=== PATIENT | male | born 1985 | race Caucasian/White ===

== ENCOUNTER 2018-03-29 17:25 | Inpatient (IN) | payer SELFPAY ==
[~2018-03-29] VITALS: Ht 177.8 cm; Wt 80.7 kg
[~2018-03-29 17:25] MED LIST: CYCL10TA29 PO; IBUP800T37 PO; TRAM-420 PO
--- NOTE | 2018-03-29 17:42 | ER Report ---
History and Physical Time Seen By MD: 17:42 Hx. of Stated Complaint: GEN. ABDO PAIN, VOMITING HPI/ROS CHIEF COMPLAINT: Abdominal pain HISTORY OF PRESENT ILLNESS: This is a 32-year-old male who presents to the emergency department for abdominal pain. Patient was seen and evaluated briefly at urgent care, sent to the ER to see has severe epigastric pain. Patient states that he developed epigastric discomfort today, getting worse Anival course today, has had nausea and vomiting, last bowel movement last night which was normal. No blood in the emesis or in the stool. Patient does drink 4 skis a day. Chills today, no fevers. No rashes. No chest pain or shortness of breath. The pain does not radiate to the flank. REVIEW OF SYSTEMS: Constitutional: As above. Eyes: No discharge. ENT: No sore throat. Cardiovascular: No chest pain, no palpitations. Respiratory: No cough, no shortness of breath. Gastrointestinal: As above. Genitourinary: No hematuria. Musculoskeletal: No back pain. Skin: No rashes. Neurological: No headache. Allergies: Coded Allergies: No Known Drug Allergies (Unverified , 04/05/16) Home Meds Discontinued Scripts Tramadol Hcl (TRAMADOL HCL) 50 Mg Tablet, 50-100 MG PO Q4-6H for PAIN, #40 TAB Prov:MANDIE POWER DO 04/05/16 Ibuprofen (IBUPROFEN) 800 Mg Tablet, 1 TAB PO Q8H for PAIN, #60 TAB Prov:JANI POWERE DO 04/05/16 Cyclobenzaprine Hcl (CYCLOBENZAPRINE HCL) 10 Mg Tablet, 10 MG PO TID for Muscle Relaxant, #30 TAB Prov:MANDIE POWER DO 04/05/16 Hx Smoking: Yes Smoking Status: Current: Every Day Smoker Exposure to Second Hand Smoke?: Yes Hx Substance Use Disorder: No Hx Alcohol Use: Yes (3 TIMES WEEKLY) Constitutional Vital Sign - Last 24 Hours 03/29/18 03/29/18 03/29/18 17:39 19:00 20:00 Temp 98.4 Pulse 68 74 65 Resp 18 15 B/P (MAP) 121/97 148/97 (114) 126/89 (101) Pulse Ox 98 96 O2 Delivery Room Air Physical Exam General Appearance: The patient is alert, has no immediate need for airway protection and no signs of toxicity, very anxious and appears to be in pain. Eyes: Pupils equal and round no pallor or injection. ENT, Mouth: Mucous membranes are moist. Respiratory: There are no retractions, lungs are clear to auscultation. Cardiovascular: Regular rate and rhythm. Gastrointestinal: Abdomen is soft, diffuse abdominal pain with intense epigastric discomfort. no masses, bowel sounds normal. Neurological: Alert and oriented 4. Moving all extremities. Following all commands. No focal neuro deficits. Skin: Warm and dry, no rashes. Musculoskeletal: Neck is supple non tender. Extremities are nontender, nonswollen and have full range of motion. DIFFERENTIAL DIAGNOSIS: After history and physical exam differential diagnosis was considered for abdominal pain including but not limited to appendicitis, alcoholic gastritis, pancreatitis, cholecystitis, gastritis and urinary tract infection. Medical Decision Making Data Points Result Diagram: 03/29/18 1820 03/29/18 1820 Laboratory Hematology Test 03/29/18 18:20 Red Blood Count 4.86 M/uL (4.00-5.60) Mean Corpuscular Volume 100.9 fL (80.0-96.0) Mean Corpuscular Hemoglobin 35.0 pg (26.0-33.0) Mean Corpuscular Hemoglobin Concent 34.7 g/dL (32.0-36.0) Red Cell Distribution Width 12.6 % (11.5-14.5) Mean Platelet Volume 8.4 fL (7.2-11.1) Neutrophils (%) (Auto) 91.0 % (39.4-72.5) Lymphocytes (%) (Auto) 3.1 % (17.6-49.6) Monocytes (%) (Auto) 5.4 % (4.1-12.4) Eosinophils (%) (Auto) 0.0 % (0.4-6.7) Basophils (%) (Auto) 0.5 % (0.3-1.4) Nucleated RBC Relative Count (auto) 0.0 /100WBC Neutrophils # (Auto) 10.8 K/uL (2.0-7.4) Lymphocytes # (Auto) 0.4 K/uL (1.3-3.6) Monocytes # (Auto) 0.6 K/uL (0.3-1.0) Eosinophils # (Auto) 0.0 K/uL (0.0-0.5) Basophils # (Auto) 0.1 K/uL (0.0-0.1) Nucleated RBC Absolute Count (auto) 0.00 K/uL Urine Color Miranda Urine Clarity Slightly-cloudy Urine pH 5.0 pH (4.8-9.5) Urine Specific [place] 1.037 Urine Protein 500 mg/dL (NEGATIVE) Urine Glucose (UA) 50 mg/dL (NEGATIVE) Urine Ketones 80 mg/dL (NEGATIVE) Urine Blood Small (NEGATIVE) Urine Nitrite Negative (NEGATIVE) Urine Bilirubin Moderate (NEGATIVE) Urine Urobilinogen 4.0 mg/dL (0.2-1.9) Urine Leukocyte Esterase Negative (NEGATIVE) Urine RBC 2 /HPF (0-2/HPF) Urine WBC <1 /HPF (0-5/HPF) Urine Squamous Epithelial Cells Few /LPF (</=FEW) Urine Bacteria Negative /HPF (NONE-FEW) Urine Mucus Few /HPF (NONE-FEW) Sodium Level 137 mmol/L (137-145) Potassium Level 3.5 mmol/L (3.5-5.0) Chloride Level 96 mmol/L (98-107) Carbon Dioxide Level 18 mmol/L (22-30) Blood Urea Nitrogen 8 mg/dl (9-21) Creatinine 0.90 mg/dl (0.66-1.25) Glomerular Filtration Rate Calc > 60.0 Random Glucose 186 mg/dl (75-110) Calcium Level 10.2 mg/dl (8.4-10.2) Total Bilirubin 1.8 mg/dl (0.2-1.3) Aspartate Amino Transf (AST/SGOT) 261 U/L (0-35) Alanine Aminotransferase (ALT/SGPT) 301 U/L (0-56) Alkaline Phosphatase 74 U/L (0-126) Troponin I < 0.012 ng/ml Total Protein 8.1 g/dl (6.3-8.2) Albumin 4.8 g/dl (3.5-5.0) Amylase Level 561 U/L (0-110) Lipase 9583 U/L (23-300) Chemistry Test 03/29/18 18:20 White Blood Count 11.9 k/uL (4.5-11.0) Red Blood Count 4.86 M/uL (4.00-5.60) Hemoglobin 17.0 g/dL (14.0-18.0) Hematocrit 49.0 % (42.0-52.0) Mean Corpuscular Volume 100.9 fL (80.0-96.0) Mean Corpuscular Hemoglobin 35.0 pg (26.0-33.0) Mean Corpuscular Hemoglobin Concent 34.7 g/dL (32.0-36.0) Red Cell Distribution Width 12.6 % (11.5-14.5) Platelet Count 197 K/uL (150-450) Mean Platelet Volume 8.4 fL (7.2-11.1) Neutrophils (%) (Auto) 91.0 % (39.4-72.5) Lymphocytes (%) (Auto) 3.1 % (17.6-49.6) Monocytes (%) (Auto) 5.4 % (4.1-12.4) Eosinophils (%) (Auto) 0.0 % (0.4-6.7) Basophils (%) (Auto) 0.5 % (0.3-1.4) Nucleated RBC Relative Count (auto) 0.0 /100WBC Neutrophils # (Auto) 10.8 K/uL (2.0-7.4) Lymphocytes # (Auto) 0.4 K/uL (1.3-3.6) Monocytes # (Auto) 0.6 K/uL (0.3-1.0) Eosinophils # (Auto) 0.0 K/uL (0.0-0.5) Basophils # (Auto) 0.1 K/uL (0.0-0.1) Nucleated RBC Absolute Count (auto) 0.00 K/uL Urine Color Miranda Urine Clarity Slightly-cloudy Urine pH 5.0 pH (4.8-9.5) Urine Specific [place] 1.037 Urine Protein 500 mg/dL (NEGATIVE) Urine Glucose (UA) 50 mg/dL (NEGATIVE) Urine Ketones 80 mg/dL (NEGATIVE) Urine Blood Small (NEGATIVE) Urine Nitrite Negative (NEGATIVE) Urine Bilirubin Moderate (NEGATIVE) Urine Urobilinogen 4.0 mg/dL (0.2-1.9) Urine Leukocyte Esterase Negative (NEGATIVE) Urine RBC 2 /HPF (0-2/HPF) Urine WBC <1 /HPF (0-5/HPF) Urine Squamous Epithelial Cells Few /LPF (</=FEW) Urine Bacteria Negative /HPF (NONE-FEW) Urine Mucus Few /HPF (NONE-FEW) Glomerular Filtration Rate Calc > 60.0 Calcium Level 10.2 mg/dl (8.4-10.2) Total Bilirubin 1.8 mg/dl (0.2-1.3) Aspartate Amino Transf (AST/SGOT) 261 U/L (0-35) Alanine Aminotransferase (ALT/SGPT) 301 U/L (0-56) Alkaline Phosphatase 74 U/L (0-126) Troponin I < 0.012 ng/ml Total Protein 8.1 g/dl (6.3-8.2) Albumin 4.8 g/dl (3.5-5.0) Amylase Level 561 U/L (0-110) Lipase 9583 U/L (23-300) Urinalysis Test 03/29/18 18:20 Urine Color Miranda Urine Clarity Slightly-cloudy Urine pH 5.0 pH (4.8-9.5) Urine Specific [place] 1.037 Urine Protein 500 mg/dL (NEGATIVE) Urine Glucose (UA) 50 mg/dL (NEGATIVE) Urine Ketones 80 mg/dL (NEGATIVE) Urine Blood Small (NEGATIVE) Urine Nitrite Negative (NEGATIVE) Urine Bilirubin Moderate (NEGATIVE) Urine Urobilinogen 4.0 mg/dL (0.2-1.9) Urine Leukocyte Esterase Negative (NEGATIVE) Urine RBC 2 /HPF (0-2/HPF) Urine WBC <1 /HPF (0-5/HPF) Urine Squamous Epithelial Cells Few /LPF (</=FEW) Urine Bacteria Negative /HPF (NONE-FEW) Urine Mucus Few /HPF (NONE-FEW) EKG/Imaging EKG Interpretation 12 lead EKG: Time of EKG 1754. Rhythm: Normal sinus rhythm, ventricular rate 65 bpm. [place]: normal QRS: normal ST segments: Nonspecific T wave changes in V2, V3, V4, V5 and the 6, no ST depression or elevation, no reciprocal changes. 12 lead EKG: Time of EKG 1830. Rhythm: Repeat EKG showing normal sinus rhythm, ventricular rate 63 bpm. [place]: normal QRS: normal ST segments: Nonspecific T wave changes similar to the previous EKG in V2, V3, V4, V5 and V6. Still no ST depression or elevation identified. No reciprocal changes. Imaging CT abdomen and pelvis with IV contrast Indication: Epigastric pain. Comparison: None available. . Technique: Axial CT images were obtained through the abdomen and pelvis during injection of nonionic iodinated intravenous contrast. Reformatted coronal and sagittal images were also obtained. One of the following dose optimization techniques was utilized in the performance of this exam: Automated exposure control; adjustment of the mA and/or kV according to the patient's size; or use of an iterative reconstruction technique. Specific details can be referenced in the facility's radiology CT exam operational policy. Contrast: 75 ml of Isovue-370 IV contrast. Findings: Lower lung horton: Limited views lower lung field are unremarkable. Liver: Mildly diffusely hypodense without focal abnormality. Biliary: Gallbladder appears unremarkable as well as the intra and extra hepatic biliary system. Pancreas: Significant peripancreatic inflammatory changes without fluid collection. Small amount of free fluid. Pancreas shows homogeneous enhancement. No focal normality or ductal dilatation. Inflammatory changes extend to paracolic gutter regions and the anterior mesocolon. Spleen: Normal appearance. Adrenal glands: Unremarkable. Kidneys / retroperitoneum: No evidence of nephrolithiasis or hydronephrosis. No focal normality. Bowel / peritoneum / mesenteries: There is some mild inflammation around the colon from the hepatic flexure to the splenic flexure but this appears to be secondary to the peripancreatic inflammation extending to this region. The remaining colon shows no focal abnormality. The appendix is normal. The small bowel shows no focal normality or obstruction the stomach is unremarkable. No other areas of inflammation. There is small amount free fluid in pelvis. No fluid collections or free air. Small umbilical hernia containing fat. Lymph node assessment: No pathologic adenopathy identified. Pelvic structures: Appear unremarkable. Vessels: No significant atherosclerotic calcifications seen throughout a nonaneurysmal abdominal aorta and branches. Musculoskeletal / Body wall: No acute or aggressive osseous abnormality. IMPRESSION: 1. Findings consistent with acute pancreatitis. Pancreas shows no focal abnormality. There is significant peripancreatic inflammation extending to the anterior mesocolon , duodenum and colon around the transverse colon. The inflammation around the colon is likely secondary to the pancreatitis and not colitis. A small amount of free fluid is seen in the peripancreatic region and the pelvis. No fluid collections. 2. Mildly diffusely hypodense liver consistent with fatty infiltration or chronic disease. No focal abnormality. I called report to RONNIE ALBA at 03/29/2018 7:48 PM. Report Dictated By: Chandra Marshall at 03/29/2018 7:40 PM Report E-Signed By: Chandra Marshall at 03/29/2018 7:50 PM WSN:[id number] ED Course/Re-evaluation Clinical Indication for ER IV: Hydration, IV Access ED Course The patient was minutes of a room. History and physical were obtained. Differential diagnoses were considered. An IV was started. A CBC, CMP, amylase and lipase were obtained. CBC showing white count of 11.9. Blood sugar 186.Bilirubin 1.8, AST 261, ALT 301, amylase 561, lipase 9583. EKGs 2 showing normal sinus rhythm, no ST depression or elevation identified. Patient was given a 1 L normal saline bolus. 6.25 mg IV Phenergan, 50 micrograms IV fentanyl, 1 mg IV Dilaudid 2. A CT of the abdomen and pelvis showing acute pancreatitis. I did review the laboratory studies and the CT results with the patient. I did tell him that the pancreatitis could be secondary to his alcohol consumption. I did recommend an admission to the hospital and talking to a therapist or someone about his alcohol consumption. Patient is in agreement with this. Did speak with Dr. Corbin is notable, the patient will be admitted to the medical floor for acut e pancreatitis. Patient had no other questions or concerns at this time and was admitted. 03/29/2018 8:35:15 pm I did speak with Dr. Corbin who has accepted the patient and the hospitalist services, patient will be admitted to the medical unit for pancreatitis. Decision to Disposition Date: Mar 29, 2018 Decision to Disposition Time: 20:34 Depart Departure Latest Vital Signs Vital Signs Date Time Temp Pulse Resp B/P (MAP) Pulse Ox O2 Delivery O2 Flow Rate FiO2 03/29/18 20:00 65 15 126/89 (101) 96 Room Air 03/29/18 17:39 98.4 Impression: Primary Impression: Pancreatitis, acute Condition: Condition Unchanged Disposition: Admitted from ER New Scripts No Active Prescriptions or Reported Meds Problem Qualifiers Primary Impression: Pancreatitis, acute Pancreatitis type: alcohol induced Acute pancreatitis complication: no infection or necrosis Qualified Codes: K85.20 - Alcohol induced acute pancreatitis without necrosis or infection RONNIE ALBA EXPLOSIVE OPERATOR [employer] Mar 29, 2018 17:42
[2018-03-29] MEDS ORDERED: NS(*) 0.9% 1000 ML BAG 1,000 ML IV ONE (17:48)
[2018-03-29] MEDS ORDERED: PROMETHAZINE 25 MG/ML 1 ML AMP IVP ONE (17:50)
[2018-03-29] MEDS ORDERED: fentaNYL CITR 100 MCG/2 ML AMP IVP ONE (17:50)
--- NOTE | 2018-03-29 18:03 | EKG ---
FACILITY: [facility] - [place] PATIENT NAME: HERMINIO MENON : [id number] MR: [id number] V: [id number] EXAM DATE: ORDERING PHYSICIAN: RONNIE ALBA TECHNOLOGIST: NICHOLAS Tong Reason : PAIN Blood Pressure : / mmHG Vent. Rate : 065 BPM Atrial Rate : 065 BPM P-R Int : 120 ms QRS Dur : 092 ms QT Int : 528 ms P-R-T Axes : 000 075 090 degrees QTc Int : 549 ms Normal sinus rhythm with sinus arrhythmia T wave abnormality, consider anterior ischemia Prolonged QT Abnormal ECG No previous ECGs available Confirmed by CHELSEA MACHADO ([id number]) on 03/29/2018 8:17:10 PM Referred By: Confirmed By:CHELSEA MACHADO
[2018-03-29] MEDS ORDERED: IOPAMIDOL 76% 75 ML INFUS BTL 75 ML ONE (18:10)
--- NOTE | 2018-03-29 18:34 | EKG ---
FACILITY: [facility] - [place] PATIENT NAME: HERMINIO MENON : [id number] MR: [id number] V: [id number] EXAM DATE: ORDERING PHYSICIAN: RONNIE ALBA TECHNOLOGIST: NICHOLAS Tong Reason : REPEAT Blood Pressure : / mmHG Vent. Rate : 063 BPM Atrial Rate : 063 BPM P-R Int : 110 ms QRS Dur : 088 ms QT Int : 474 ms P-R-T Axes : 096 072 113 degrees QTc Int : 485 ms Sinus rhythm with short MI T wave abnormality, consider anterolateral ischemia Prolonged QT Abnormal ECG No previous ECGs available Confirmed by CHELSEA MACHADO ([id number]) on 03/29/2018 8:17:55 PM Referred By: Confirmed By:CHELSEA MACHADO
[2018-03-29] MEDS ORDERED: HYDROMORPHONE HCL 1 MG/ML SYRINGE IVP ONE ×2 (18:35→20:35)
[2018-03-29 18:41] LABS: PLATELET COUNT, AUTOMATED 197 K/uL (150-450)
--- NOTE | 2018-03-29 19:54 | RADIOLOGY IMAGING REPORT ---
[place] [facility] [place] Paul [place] : 1985 MR: [id number] V: [id number] EXAM DATE: ORDERING PHYSICIAN: RONNIE ALBA TECHNOLOGIST: Location: [facility] - [place] Patient: Paul Baker : 1985 Visit/Account:[id number] Date of Sevice: 03/29/2018 CT abdomen and pelvis with IV contrast Indication: Epigastric pain. Comparison: None available. . Technique: Axial CT images were obtained through the abdomen and pelvis during injection of nonioni c iodinated intravenous contrast. Reformatted coronal and sagittal images were also obtained. One of the following dose optimization techniques was utilized in the performance of this exam: Autom ated exposure control; adjustment of the mA and/or kV according to the patient's size; or use of an i terative reconstruction technique. Specific details can be referenced in the facility's radiology C T exam operational policy. Contrast: 75 ml of Isovue-370 IV contrast. Findings: Lower lung horton: Limited views lower lung field are unremarkable. Liver: Mildly diffusely hypodense without focal abnormality. Biliary: Gallbladder appears unremarkable as well as the intra and extra hepatic biliary system. Pancreas: Significant peripancreatic inflammatory changes without fluid collection. Small amount of f ree fluid. Pancreas shows homogeneous enhancement. No focal normality or ductal dilatation. Inflammat ory changes extend to paracolic gutter regions and the anterior mesocolon. Spleen: Normal appearance. Adrenal glands: Unremarkable. Kidneys / retroperitoneum: No evidence of nephrolithiasis or hydronephrosis. No focal normality. Bowel / peritoneum / mesenteries: There is some mild inflammation around the colon from the hepatic f lexure to the splenic flexure but this appears to be secondary to the peripancreatic inflammation ext ending to this region. The remaining colon shows no focal abnormality. The appendix is normal. The sm all bowel shows no focal normality or obstruction the stomach is unremarkable. No other areas of inflammation. There is small amount free fluid in pelvis. No fluid collections or f ree air. Small umbilical hernia containing fat. Lymph node assessment: No pathologic adenopathy identified. Pelvic structures: Appear unremarkable. Vessels: No significant atherosclerotic calcifications seen throughout a nonaneurysmal abdominal aort a and branches. Musculoskeletal / Body wall: No acute or aggressive osseous abnormality. IMPRESSION: 1. Findings consistent with acute pancreatitis. Pancreas shows no focal abnormality. There is signifi cant peripancreatic inflammation extending to the anterior mesocolon , duodenum and colon around the transverse colon. The inflammation around the colon is likely secondary to the pancreatitis and not c olitis. A small amount of free fluid is seen in the peripancreatic region and the pelvis. No fluid co llections. 2. Mildly diffusely hypodense liver consistent with fatty infiltration or chronic disease. No focal a bnormality. I called report to RONNIE ALBA at 03/29/2018 7:48 PM. Report Dictated By: Chandra Marshall at 03/29/2018 7:40 PM Report E-Signed By: Chandra Marshall at 03/29/2018 7:50 PM WSN:[id number]
[2018-03-29 21:00] VITALS: BP 164/84
[2018-03-29] MEDS ORDERED: MORPHINE 1 MG/ML 30 ML PCA IV PRN (22:10)
[2018-03-29] MEDS ORDERED: PROMETHAZINE 25 MG/ML 1 ML AMP IVP PRN (22:10)
[2018-03-29] MEDS ORDERED: NALOXONE HCL 0.4 MG/ML VIAL IVP PRN (22:10)
[2018-03-29] MEDS ORDERED: INFLUENZA VIRUS VAC 0.5ML SYR IM ONLY ONE (22:10)
--- NOTE | 2018-03-29 22:22 | History & Physical ---
History of Present Illness Chief Complaint Abdominal pain and vomiting History of Present Illness This patient presented to the emergency room complaining of abdominal pain and vomiting. He reports his symptoms started abruptly this morning. He also reports that he consumes several glasses of whiskey daily. History Problems: (1) No significant past medical history Home Meds Discontinued Scripts Tramadol Hcl (TRAMADOL HCL) 50 Mg Tablet, 50-100 MG PO Q4-6H for PAIN, #40 TAB Prov:JANNETTATEMANDIE DO 04/05/16 Ibuprofen (IBUPROFEN) 800 Mg Tablet, 1 TAB PO Q8H for PAIN, #60 TAB Prov:JANNET,MANDIE DO 04/05/16 Cyclobenzaprine Hcl (CYCLOBENZAPRINE HCL) 10 Mg Tablet, 10 MG PO TID for Muscle Relaxant, #30 TAB Prov:JANNET,MANDIE DO 04/05/16 Allergies: Coded Allergies: No Known Drug Allergies (Unverified , 04/05/16) Patient History: FH: alcoholism MOTHER FH: bipolar disorder BROTHER OR SISTER Hx Smoking: Yes ("vaping") Smoking Status: Current: Every Day Smoker Exposure to Second Hand Smoke?: Yes Caffeine Intake: Tea, Soda Caffeine/Cups Per Day: occ Hx Alcohol Use: Yes Alcohol Used: Liquor Hx Substance Use Disorder: No Social Drug Use: Former History of IV Drug Use: No Review of Systems All Systems Reviewed/Normal: Yes, Except as Noted Gastrointestinal: Nausea, Vomiting, Abdominal Pain Exam Vital Signs Vital Signs Date Time Temp Pulse Resp B/P (MAP) Pulse Ox O2 Delivery O2 Flow Rate FiO2 03/29/18 21:22 92 Room Air 03/29/18 21:00 98.3 70 20 164/84 (110) Neuro: No Gross deficits Eyes: PERRLA Cardiovascular: Regular Rate and Rhythm Respiratory: Clear to Auscultation GI: Other (Tenderness in epigastic region.) Extremities: No Edema Integumentary: No Jaundice Medical Decision Making Data Points Result Diagram: 03/29/18181903/29/181819 Item Value Date Time Lipase 9583 U/L H 03/29/181819 EKG / Imaging Imaging CT abdomen and pelvis reviewed. Assessment and Plan Problems: (1) Pancreatitis, acute Status: Acute Assessment & Plan: He did present with abdominal pain and vomiting. His lipase was elevated and his CT scan is consistent with uncomplicated pancreatitis. The etiology is likely alcohol consumption. 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 A repeat lipase is ordered for the morning. Venous Thromboembolism Antithrombotics Is Pt On Any Antithrombotics?: No Exam Sepsis Risk: No Definite Risk Problem Qualifiers (1) Pancreatitis, acute: Pancreatitis type: alcohol induced Acute pancreatitis complication: no infection or necrosis Qualified Codes: K85.20 - Alcohol induced acute pancreatitis without necrosis or infection CHELSEA MACHADO DO Mar 29, 2018 22:22
[2018-03-29] MEDS: NS(*) 0.9% 1000 ML BAG 1,000 ML IV PRN (22:46)
[2018-03-29 23:23] VITALS: BP 157/90
[2018-03-30 05:21] VITALS: BP 158/100
[2018-03-30] MEDS: NS(*) 0.9% 1000 ML BAG 1,000 ML IV PRN (06:00)
[2018-03-30 06:09] LABS: PLATELET COUNT, AUTOMATED 130 K/uL (150-450)
[2018-03-30 07:24] VITALS: BP 164/105
[2018-03-30] MEDS ORDERED: LR(*) 1000 ML BAG 1,000 ML IV PRN (07:45)
[2018-03-30] MEDS ORDERED: THIAMINE HCL 100 MG TAB PO SCH (09:00)
[2018-03-30] MEDS ORDERED: NICOTINE 14 MG/24 HR PATCH TD SCH (09:00)
[2018-03-30] MEDS ORDERED: FOLIC ACID 1 MG TAB PO SCH (09:00)
[2018-03-30 09:27] VITALS: Ht 177.8 cm; Wt 80.7 kg
--- NOTE | 2018-03-30 10:14 | Hospitalist Progress Note ---
Subjective Progress Notes Subjective 32M admitted for acute pancreatitis. N/V improved, pain well controlled. Discussed trial chips and sips then advance to clear liquid if tolerated. Patient Complains of: Gastrointestinal: Nausea (mild, improved); No Vomiting Physical Exam Vital Signs Date Time Temp Pulse Resp B/P (MAP) Pulse Ox O2 Delivery O2 Flow Rate FiO2 03/30/18 09:23 91 03/30/18 07:24 98.9 89 18 164/105 (124) Nasal Cannula 0.5 Intake and Output 03/30/18 07:00 Intake Total 2000 ml Output Total 385 ml Balance 1615 ml Intake Oral 0 ml IV Total 2000 ml Output Urine Total 360 ml Emesis 25 ml # Voids 2 # Emeses 1 General Appearance: Alert, Awake, No Acute Distress Neuro: No Gross deficits Eyes: PERRLA ENT: Normal Neck: No Masses Cardiovascular: Normal Rhythm & Peripheral Pulses Respiratory: No Respiratory Distress GI: Other (mild epegastric tenderness.) Musculoskeletal: No Weakness/Pain Extremities: Soft and Non Tender Integumentary: Skin Intact without Lesion / Mass Psych: Alert & Oriented X3 Result Diagram: 03/30/18 0545 03/30/18 0545 Assessment and Plan Problems: (1) Pancreatitis, acute Status: Acute Assessment & Plan: He did present with abdominal pain and vomiting. His lipase was elevated and his CT scan is consistent with uncomplicated pancreatitis. The etiology is likely alcohol consumption. He has been placed NPO and morphine DRAGLINE OILER has been started for pain control, IV fluid resuscitation. Trial chips and sips, if tolerated will proceed to clear liquid diet and d/c DRAGLINE OILER pump this evening. (2) Tobacco abuse Assessment & Plan: [employer] cessation, nicotine replacement ordered. (3) Alcohol abuse Assessment & Plan: Daily use, child welfare counselor cessation. Offered referral to [facility] to get resources. Exam Sepsis Risk: No Definite Risk Problem Qualifiers (1) Pancreatitis, acute: Pancreatitis type: alcohol induced Acute pancreatitis complication: no infection or necrosis Qualified Codes: K85.20 - Alcohol induced acute pancreatitis without necrosis or infection MARCOS CHOI DO Mar 30, 2018 10:14
[2018-03-30 11:03] VITALS: BP 157/107
--- NOTE | 2018-03-30 15:44 | Medical Nutrition Therapy ---
Nutrition Anthropometrics Height (Inches): 70.00 Height (Calculated Centimeters: 177.134644 Weight (Pounds): 178 Weight (Calculated Kilograms): 80.739 BMI: 25.5 Ervin Nutrition Score: Adequate Ervin Nutrition Risk Score: 20 Dietary Referral Nutrition Risk Factors: Nutrition Risk Comment: Physical Findings Physical Appearance: Overweight BMI 25-29 Skin Appearance Skin Appearance: Edema Edema Location Modifier: Edema Location: Type of Edema: Degree of Edema: Gastrointestinal Symptoms GI Symtoms: Nausea Tube Present: Bowel Sounds: Recent Bowel Pattern: Stool Characteristics: Nutritional Diagnosis Nutritional Risk Acuity 2: Pancreatitis Nutritional Risk Acuity 3: Alcohol abuse Nutritional Risk Acuity 4: Modified Diet Past Medical History: No significant medical hx Nutritional Acuity: 2-Moderate Nutrition Diagnosis: Inadequate Food Intake Nutrition Etiology: Alcohol Addiction Nutrition Problem/Etiology/Sym: Inadequate food intake, as related to alcohol addiction, as evidenced by reported intake of 4 glasses of whiskey each night, and diagnosis of alcohol and substance abuse. Energy Requirement: 2300 (Blanco, AF-1.3) Protein Requirement: 80 (1g/kg) Fluid Requirement: 2300 (1ml/kcal) Diet Type: NPO (Nothing by Mouth) Nutrition Intervention: Incr diet as tolerated Nutrition Monitoring & Eval RD Patient Assessment Time: [address] Assessment Type: RD Assessment Patient Nutrition Acuity: 2-Moderate Follow Up Date: Apr 02, 2018 Nutritional Comment: 03/30. Admitted for pancreatits. Pt complained of ab pain, nausea, vomiting. Reported pt drinks 4 glasses of whiskey a night, which is thought to be the etiology of the pancreatitis. Pt is currently NPO. Notable labs include: elevated WBC 11.5, random BG 134, AST 121, ALT 202, and lipase 6166. Pt is 70 in, 178lbs, and has an overweight BMI of 25. Increase diet as tolerated. Recommend pt consumes 2300 kcal and 80g protein each day. FREDY HAYS Mar 30, 2018 12:49
[2018-03-30 16:09] VITALS: BP 148/109
[2018-03-30] MEDS ORDERED: APAP/HYDROCODONE 325/5 TAB PO PRN (17:40)
[2018-03-30] MEDS ORDERED: HYDROmorphone HCL 2 MG/ML SDV IVP PRN (17:40)
[2018-03-30 19:24] VITALS: BP 148/102
[2018-03-30] MEDS: DIAZEPAM 10 MG TAB PO PRN ×2 (19:27→20:49)
[2018-03-30] MEDS ORDERED: LORazepam 2 MG/ML VIAL IVP PRN (21:05)
[2018-03-30] MEDS: LORazepam 2 MG/ML VIAL IVP PRN ×3 (21:53→23:53)
[2018-03-30 22:45] VITALS: BP 125/91
[2018-03-31] VITALS (15 sets, daily range): BP systolic 111–164; BP diastolic 65–101
--- NOTE | 2018-03-31 00:17 | EKG ---
[place] [facility] [place] NAME: HERMINIO MENON : [id number] MR: [id number] V: [id number] EXAM DATE: ORDERING PHYSICIAN: MARCOS GIFFORD TECHNOLOGIST: BONNIE Test Reason : TACHYCARDIA Blood Pressure : / mmHG Vent. Rate : 138 BPM Atrial Rate : 138 BPM P-R Int : 000 ms QRS Dur : 082 ms QT Int : 360 ms P-R-T Axes : 000 074 027 degrees QTc Int : [address] and T wave abnormality, consider inferolateral ischemia Abnormal ECG Confirmed by Marcos Freeman ([id number]) on 03/31/2018 6:31:59 AM Referred By: Confirmed By:Marcos Gifford
[2018-03-31] MEDS: LORazepam 2 MG/ML VIAL IVP PRN ×14 (00:56→22:26)
[2018-03-31] MEDS: DIAZEPAM 10 MG TAB PO PRN ×2 (04:19→06:23)
[2018-03-31 06:20] LABS: PLATELET COUNT, AUTOMATED 145 K/uL (150-450)
[2018-03-31] MEDS ORDERED: HYDROmorphone PCA 6 MG/30 ML IV PRN (09:15)
--- NOTE | 2018-03-31 09:32 | RADIOLOGY IMAGING REPORT ---
FACILITY: [facility] PATIENT NAME: Paul Baker : 1985 MR: [id number] V: [id number] EXAM DATE: ORDERING PHYSICIAN: SERG JOHNSON TECHNOLOGIST: Location: [facility] Patient: Paul Baker : 1985 Visit/Account:[id number] Date of Sevice: 03/31/2018 CHEST SINGLE AP HISTORY: Tachypnea. Fever. COMPARISON: None FINDINGS: Cardiomediastinal contours: The heart size is normal. Lungs and pleura: There is no finding of an infiltrate, lymphadenopathy or pleural effusion. Lung vol umes are low but this may be related to the portable nature of the examination. Bones/soft tissues: There are no findings of a fracture. IMPRESSION: 1. Low lung volumes. 2. No active disease in the chest. Report Dictated By: Immanuel Calvillo MD at 03/31/2018 9:28 AM Report E-Signed By: Immanuel Calvillo MD at 03/31/2018 9:29 AM [id number]
[2018-03-31] MEDS: DLR(*) 1000 ML BAG 1,000 ML IV PRN ×2 (09:42→22:26)
--- NOTE | 2018-03-31 10:07 | RADIOLOGY IMAGING REPORT ---
FACILITY: [facility] PATIENT NAME: Paul Baker : 1985 MR: [id number] V: [id number] EXAM DATE: ORDERING PHYSICIAN: SERG JOHNSON TECHNOLOGIST: Location: Patient: Paul Baker : 1985 Visit/Account:[id number] Date of Sevice: 03/31/2018 ABDOMEN/PELVIS W/O CONTRAST COMPARISON: CT abdomen and pelvis with contrast March 29, 2018. HISTORY: acute pancreatitis. Pain. TECHNIQUE: Axial CT abdomen and pelvis without intravenous contrast. Coronal and sagittal reformats . One of the following dose optimization techniques was utilized in the performance of this exam: auto mated exposure control; adjustment of the mA and/or kV according to patient size; or use of iterative reconstruction technique. Specific details can be referenced in the facility's radiology CT exam op erational policy. CONTRAST: No intravenous contrast. FINDINGS: Lack of IV contrast limits assessment of the liver and other solid organs for subtle pathology. Withi n these limitations, the following observations are made: LUNG BASES: Small left pleural effusion is new. There is adjacent atelectasis but no lung base pneum onia or edema.. LIVER: Severe diffuse hepatic steatosis. Normal size and morphology. BILIARY: Diffusely dense gallbladder content is most consistent with vicariou sly excreted contrast from the previous exam. There is no intra or extrahepatic bile duct dilatation. SPLEEN: Unremarkable. Normal size. Homogeneous density. PANCREAS: Severe diffuse peripancreatic fat stranding which has progressed. No well-defined pancreat ic or peripancreatic fluid collections within the limitations of a noncontrast study.. ADRENALS: Unremarkable. KIDNEYS: 1.4 cm intermediate density lesion in the right kidney cortex laterally on series 2 image 5 2, presumably hemorrhagic cyst which was partially obscured by the phase of the contrast demonstratio n on the prior. No stones or hydronephrosis. Unremarkable left kidney. GI/MESENTERY: Mild motion artifact through the abdomen. Wall thickening of the second and third duod enum, considered reactive. The rest of the small bowel is under distended, without additional wall th ickening identified. There is no evidence of bowel obstruction. The colon is unremarkable. Small amou nt of free fluid in the distal left paracolic gutter, distal right paracolic gutter, and pelvis which measure simple water density. Pelvic ascites has increased compared to previous. No loculated compon ents are identified VASCULAR: Unremarkable. LYMPH NODES: Unremarkable. No significantly enlarged lymph nodes. BLADDER: Moderate perivesical fat stranding, new from previous. There is at least a small component of nearby ascites, but cystitis is not excluded. Bladder wall is circumferentially prominent but not frankly thickened. No bladder stones. PELVIC ORGANS: Unremarkable. BONES: Unremarkable.No acute-appearing fracture or suspicious osseous lesion. OTHER: Negative. IMPRESSION: 1. Severe peripancreatic fat stranding consistent with ongoing acute pancreatitis. The fat stranding has progressed compared to March 29, 2018. There is no discrete peripancreatic fluid collection. 2. Small amount of lower abdomen/pelvic ascites which has increased in volume compared to previous. No loculated collections. 3. Moderate perivesical fat stranding, new from previous. There is some nearby ascites which might a ccount for this, but cystitis is not excluded. 4. Small left pleural effusion is new. 5. Severe diffuse hepatic steatosis. 6. 1.4 cm intermediate density lesion in the right kidney is presumably a hemorrhagic cyst. 7. Vicariously excreted contrast in the gallbladder due to the March 29 study. Clinical correlat ion for renal dysfunction recommended. Report Dictated By: Maxim Moreno at 03/31/2018 9:54 AM Report E-Signed By: Maxim Moreno at 03/31/2018 10:03 AM [id number] [email or web address]
--- NOTE | 2018-03-31 10:19 | Hospitalist Progress Note ---
Subjective Progress Notes Subjective He reports abdominal pain is still present, but "about a 2". He has had fever/tachycardia. Physical Exam Vital Signs Date Time Temp Pulse Resp B/P (MAP) Pulse Ox O2 Delivery O2 Flow Rate FiO2 03/31/18 09:16 100.9 130 28 138/94 (109) 91 Room Air 03/30/18 07:24 0.5 Intake and Output 03/31/18 07:00 Intake Total 1199 ml Balance 1199 ml Intake Oral 240 ml IV Total 959 ml # Voids 1 General Appearance: Alert, Awake, Other (tremulous) Neuro: No Gross deficits Cardiovascular: Other (Tachycardic regular no murmur) Respiratory: Other (fairly clear) GI: Other (diffuse tenderness and some guarding with palpation/BS present) Extremities: Warm, Perfused Psych: Alert & Oriented X3 Result Diagram: 03/31/1844 03/31/1844 Assessment and Plan Problems: (1) Pancreatitis, acute Status: Acute Assessment & Plan: He presented with abdominal pain and vomiting. His lipase was elevated and his CT scan was initially consistent with uncomplicated pancreatitis. The etiology is likely alcohol consumption. He was initially placed NPO with MOT[employer] VEH[employer]LE [employer]AMINER for pain control, as well as IV fluid resuscitation. He was then advanced to a trial with ice chips and sips. He seemed to tolerate and was advanced to clear liquid diet. His MOTOR VEH[employer]LE EXAMINER pump was stopped last evening. Unfortunately, he seems to have worsened this AM. Will restart IV fluids, IV pain meds. Keep NPO. Recheck CT scan to see if any complicating factors. (2) Alcohol abuse Assessment & Plan: Daily use, counselled cessation. Offered referral to [facility] to get resources. Continue CIWA protocol as he has significant withdrawal symptoms. Continue thiamine. (3) Tobacco abuse Assessment & Plan: Counselled cessation. Nicotine replacement on hold for now. Exam Sepsis Risk: Sepsis Risk Problem Qualifiers (1) Pancreatitis, acute: Pancreatitis type: alcohol induced Acute pancreatitis complication: no infection or necrosis Qualified Codes: K85.20 - Alcohol induced acute pancreatitis without necrosis or infection SERG JOHNSON MD Mar 31, 2018 10:18
[2018-03-31] MEDS ORDERED: NALOXONE HCL 0.4 MG/ML VIAL IVP PRN (10:25)
[2018-03-31] MEDS: THIAMINE HCL 200 MG/2 ML INJ IVP SCH (10:50)
[2018-03-31] MEDS: CEFEPIME HCL 2 GM VIAL IVP SCH ×2 (11:53→23:17)
[2018-03-31] MEDS ORDERED: NS(*) 0.9% 500 ML BAG 500 ML ONE ×2 (12:22→18:12)
[2018-03-31] MEDS: metroNIDAZOLE* 500MG/100ML BAG 100 ML IVPB SCH ×3 (12:26→23:52)
[2018-03-31] MEDS ORDERED: IV BOLUS 500 ML IVSOL IV ONE (13:20)
[2018-03-31] MEDS ORDERED: NS 0.9% 500 ML BAG IV ONE (15:50)
[2018-04-01] MEDS: metroNIDAZOLE* 500MG/100ML BAG 100 ML IVPB SCH (05:33)
[2018-04-01 05:49] LABS: PLATELET COUNT, AUTOMATED 133 K/uL (150-450)
[2018-04-01 07:48] VITALS: BP 141/89
[2018-04-01] MEDS: THIAMINE HCL 200 MG/2 ML INJ IVP SCH (09:09)
[2018-04-01] MEDS: DLR(*) 1000 ML BAG 1,000 ML IV PRN ×2 (09:09→18:58)
--- NOTE | 2018-04-01 10:15 | Hospitalist Progress Note ---
Subjective Progress Notes Subjective This patient was admitted for pancreatitis and then developed alcohol withdrawal. He had no acute issues overnight. Patient Complains of: Cardiovascular: No: Chest Pain Respiratory: No: Shortness of Breath Physical Exam Vital Signs Date Time Temp Pulse Resp B/P (MAP) Pulse Ox O2 Delivery O2 Flow Rate FiO2 04/01/18 07:48 99.0 92 18 141/89 (106) 97 Room Air 03/30/18 07:24 0.5 Intake and Output 04/01/18 07:00 Intake Total 428 ml Balance 428 ml Intake Oral 240 ml IV Total 188 ml # Voids 1 Cardiovascular: Regular Rate and Rhythm Respiratory: Clear to Auscultation GI: Other (Epigastric tenderness.) Result Diagram: 04/01/1834 04/01/18 05 Item Value Date Time Lipase 528 U/L H 04/01/18533 Assessment and Plan Problems: (1) Pancreatitis, acute Status: Acute Assessment & Plan: He presented with abdominal pain and vomiting. His lipase was elevated and his CT scan was initially consistent with uncomplicated pancreatitis. The etiology is likely alcohol consumption. He has remained NPO. A repeat CT scan was done yesterday after he developed a fever. This showed findings consistent with ongoing pancreatitis, but no abscess or pseudocyst. He was started on empiric treatment with cefepime and metronidazole, but those have since been stopped. His lipase is trending down, but still greater than normal. We will continue his NPO status through today. A repeat lipase is ordered for the morning. (2) Alcohol withdrawal Assessment & Plan: He did develop withdrawal symptoms and required IV lorazepam yesterday. He is on supplemental thiamine. (3) Alcohol abuse Assessment & Plan: Daily use, counselled cessation. Offered referral to [facility] to get resources. (4) Tobacco abuse Assessment & Plan: Counselled cessation. Nicotine replacement on hold for now. Exam Sepsis Risk: No Definite Risk Problem Qualifiers (1) Pancreatitis, acute: Pancreatitis type: alcohol induced Acute pancreatitis complication: no infection or necrosis Qualified Codes: K85.20 - Alcohol induced acute pancreatitis without necrosis or infection CHELSEA MACHADO DO Apr 01, 2018 10:15
[2018-04-01 11:44] VITALS: BP 126/93
[2018-04-01 15:22] VITALS: BP 145/82
[2018-04-01 19:13] VITALS: BP 142/88
[2018-04-02 01:32] VITALS: BP 136/87
[2018-04-02] MEDS: DLR(*) 1000 ML BAG 1,000 ML IV PRN (01:32)
[2018-04-02 07:29] VITALS: BP 142/94
[2018-04-02] MEDS: THIAMINE HCL 200 MG/2 ML INJ IVP SCH (09:31)
--- NOTE | 2018-04-02 11:43 | Hospitalist Depart ---
Discharge Summary Reason for Hosp/Final Diag: (1) Left against medical advice Status: Acute Hospital Course & Plan: The patient didn't want to wait around the hospital to see if he could tolerate a diet. He was told that we want to make sure he can tolerate a diet and that insurance might not pay if he leaves AMA. He and his significant other expressed understanding. (2) Pancreatitis, acute Status: Acute Hospital Course & Plan: He presented with abdominal pain and vomiting. His lipase was elevated and his CT scan was initially consistent with uncomplicated pancreatitis. The etiology is likely alcohol consumption. He had remained NPO until this morning. A repeat CT scan was done on 03/31 after he developed a fever. This showed findings consistent with ongoing pancreatitis, but no abscess or pseudocyst. He was started on empiric treatment with cefepime and metronidazole, but those have since been stopped. His lipase has normalized. Jeromy hernandez seems to have tolerated clear liquids this morning with the plan to advance to a low fat diet over lunch, but the patient left AMA. (3) Alcohol withdrawal Hospital Course & Plan: He did develop withdrawal symptoms and required oral diazepam and IV lorazepam per [facility]. The last dose of benzodiazepines was lorazepam on the evening of 03/31. He was on supplemental thiamine. He uses alcohol daily, has an elevated MCV and elevated LFT's. The LFT's likely are related to pancreatitis, but have been improving during the admission. We counselled cessation. We, also, offered referral to [facility] to get resources. He refused and left AMA. (4) Alcohol abuse Hospital Course & Plan: Daily use, counselled cessation. Offered referral to [facility] to get resources. (5) Tobacco abuse Hospital Course & Plan: Counselled cessation. Nicotine replacement on hold for now. Departure Weight (Pounds): 178 Weight (Ounces): 2.0 Result Diagram: 04/01/18 0534 04/01/18 0534 Item Value Date Time White Blood Count 11.9 k/uL H 03/29/18 1820 White Blood Count 11.5 k/uL H 03/30/18 0545 White Blood Count 16.6 k/uL H 03/31/18 0544 White Blood Count 11.0 k/uL 04/01/18 0534 Hemoglobin 14.1 g/dL 04/01/18 0534 Hemoglobin 16.3 g/dL 03/31/18 0544 Hemoglobin 16.3 g/dL 03/30/18 0545 Hemoglobin 17.0 g/dL 03/29/18 1820 Mean Corpuscular Volume 100.9 fL H 03/29/18 1820 Platelet Count 197 K/uL 03/29/18 1820 Platelet Count 130 K/uL L 03/30/18 0545 Platelet Count 145 K/uL L 03/31/18 0544 Platelet Count 133 K/uL L 04/01/18 0534 Neutrophils (%) (Auto) 84.5 % H 04/01/18 0534 Neutrophils % (Manual) 64 % 03/31/18 0544 Band Neutrophils % 25 % 03/31/18 0544 Lymphocytes % (Manual) 3 % L 03/31/18 0544 Monocytes % (Manual) 8 % 03/31/18 0544 Eosinophils % (Manual) 0 % L 03/31/18 0544 Lymphocytes (%) (Auto) 6.2 % L 04/01/18 05 Monocytes (%) (Auto) 8.5 % 04/01/18 0534 Neutrophils (%) (Auto) 91.0 % H 03/29/18 1820 Lymphocytes (%) (Auto) 3.1 % L 03/29/18 1820 Monocytes (%) (Auto) 5.4 % 03/29/18 1820 Neutrophils (%) (Auto) 90.6 % H 03/30/18 0545 Lymphocytes (%) (Auto) 3.6 % L 03/30/18 0545 Monocytes (%) (Auto) 5.6 % 03/30/18 0545 Mean Corpuscular Volume 103.5 fL H 04/01/18 0534 Amylase Level 561 U/L H 03/29/18 1820 Lipase 9583 U/L H 03/29/18 1820 Troponin I < 0.012 ng/ml 03/29/18 182 Total Bilirubin 1.8 mg/dl H 03/29/18 1820 Aspartate Amino Transf (AST/SGOT) 261 U/L H 03/29/18 1820 Alanine Aminotransferase (ALT/SGPT) 301 U/L H 03/29/18 1820 Alkaline Phosphatase 74 U/L 03/29/18 1820 Carbon Dioxide Level 18 mmol/L L 03/29/18 182 Blood Urea Nitrogen 8 mg/dl L 03/29/18 1820 Sodium Level 137 mmol/L 03/29/18 1820 Potassium Level 3.5 mmol/L 03/29/18 1820 Chloride Level 96 mmol/L L 03/29/18 1820 Random Glucose 186 mg/dl H 03/29/18 1820 Calcium Level 10.2 mg/dl 03/29/18 1820 Total Bilirubin 1.5 mg/dl H 03/30/18 0545 Aspartate Amino Transf (AST/SGOT) 121 U/L H 03/30/18 0545 Alanine Aminotransferase (ALT/SGPT) 202 U/L H 03/30/18 0545 Total Bilirubin 1.7 mg/dl H 03/31/18 0544 Aspartate Amino Transf (AST/SGOT) 67 U/L H 03/31/18 0544 Alanine Aminotransferase (ALT/SGPT) 122 U/L H 03/31/18 0544 Total Bilirubin 1.6 mg/dl H 04/01/18 0534 Aspartate Amino Transf (AST/SGOT) 43 U/L H 04/01/18 0534 Alanine Aminotransferase (ALT/SGPT) 79 U/L H 04/01/18 0534 Lipase 6166 U/L H 03/30/18 0545 Lipase 1625 U/L H 03/31/18 0544 Lipase 528 U/L H 04/01/18 0534 Sodium Level 134 mmol/L L 04/01/18 0534 Potassium Level 3.3 mmol/L L 04/01/18 0534 Sodium Level 134 mmol/L L 03/31/18 0544 Potassium Level 3.6 mmol/L 03/31/18 0544 Sodium Level 137 mmol/L 03/30/18 0545 Potassium Level 3.8 mmol/L 03/30/18 0545 Magnesium Level 1.7 mg/dl 04/01/18 0534 Urine Urobilinogen 4.0 mg/dL H 03/29/18 1820 Urine Leukocyte Esterase Negative 03/29/18 1820 Urine RBC 2 /HPF 03/29/180 Urine WBC <1 /HPF 03/29/18 1820 Urine Squamous Epithelial Cells Few /LPF 03/29/18 1820 Urine Ketones 80 mg/dL H 03/29/18 1820 Urine Glucose (UA) 50 mg/dL H 03/29/18 1820 Urine Protein 500 mg/dL 03/29/18 1820 Imaging 03/31/18 Abd/Pelvis CT - 1. Severe peripancreatic fat stranding consistent with ongoing acute pancreatitis. The fat stranding has progressed compared to March 29, 2018. There is no discrete peripancreatic fluid collection. 2. Small amount of lower abdomen/pelvic ascites which has increased in volume compared to previous. No loculated collections. 3. Moderate perivesical fat stranding, new from previous. There is some nearby ascites which might account for this, but cystitis is not excluded. 4. Small left pleural effusion is new. 5. Severe diffuse hepatic steatosis. 6. 1.4 cm intermediate density lesion in the right kidney is presumably a hemorrhagic cyst. 7. Vicariously excreted contrast in the gallbladder due to the March 29 tudy. Clinical correlation for renal dysfunction recommended. 03/31/18 CXR - 1. Low lung volumes. 2. No active disease in the chest. 03/29/18 Abd/Pelvis CT - 1. Findings consistent with acute pancreatitis. Pancreas shows no focal abnormality. There is significant peripancreatic inflammation extending to the anterior mesocolon , duodenum and colon around the transverse colon. The inflammation around the colon is likely secondary to the pancreatitis and not colitis. A small amount of free fluid is seen in the peripancreatic region and the pelvis. No fluid collections. 2. Mildly diffusely hypodense liver consistent with fatty infiltration or chronic disease. No focal abnormality. EKG Test Reason : TACHYCARDIA Blood Pressure : / mmHG Vent. Rate : 138 BPM Atrial Rate : 138 BPM P-R Int : 000 ms QRS Dur : 082 ms QT Int : 360 ms P-R-T Axes : 000 074 027 degrees QTc Int : [address] and T wave abnormality, consider inferolateral ischemia Abnormal ECG Confirmed by Gonsalo Freeman ([id number]) on 03/31/2018 6:31:59 AM Vent. Rate : 065 BPM Atrial Rate : 065 BPM P-R Int : 120 ms QRS Dur : 092 ms QT Int : 528 ms P-R-T Axes : 000 075 090 degrees QTc Int : 549 ms Normal sinus rhythm with sinus arrhythmia T wave abnormality, consider anterior ischemia Prolonged QT Abnormal ECG No previous ECGs available Confirmed by CHELSEA MACHADO ([id number]) on 03/29/2018 8:17:10 PM Condition: Improved Discharge: Home Discharge Instructions Home Meds Discontinued Scripts Tramadol Hcl (TRAMADOL HCL) 50 Mg Tablet, 50-100 MG PO Q4-6H for PAIN, #40 TAB Prov:MANDIE POWER DO 04/05/16 Ibuprofen (IBUPROFEN) 800 Mg Tablet, 1 TAB PO Q8H for PAIN, #60 TAB Prov:MANDIE POWER DO 04/05/16 Cyclobenzaprine Hcl (CYCLOBENZAPRINE HCL) 10 Mg Tablet, 10 MG PO TID for Muscle Relaxant, #30 TAB Prov:JANNETMANDIE DO 04/05/16 Diet: Low Fat Activity: As Tolerated Venous Thromboembolism Antithrombotics Is Pt On Any Antithrombotics?: No Problem Qualifiers (1) Pancreatitis, acute: Pancreatitis type: alcohol induced Acute pancreatitis complication: no infection or necrosis Qualified Codes: K85.20 - Alcohol induced acute pancreatitis without necrosis or infection NORRIS LAMAS MD Apr 02, 2018 11:43
== END 2018-04-02 09:55 | disposition left against medical advice (07) | DRG 439 ==
LOC: ER 17:53 → MED 20:27
PROVIDERS: ADMIT Family Medicine; ATTEND Family Medicine
DX: K85.20 Alcohol induced acute pancreatitis without necrosis or infection (principal); F10.230 Alcohol dependence with withdrawal, uncomplicated; F17.210 Nicotine dependence, cigarettes, uncomplicated; Z53.29 Procedure and treatment not carried out because of patient's decision for other reasons
CPT/HCPCS: 36415; 71045; 74176; 74177; 81001; 82040; 82150; 82247; 82310; 82374; 82435; 82565; 82947; 83690; 83735; 84075; 84132; 84155; 84295; 84450; 84460; 84484; 84520; 85025; 93005; 96374; 96375; 96376; 99284; J0692; J1170; J2060; J2270; J2550; J3010; J3411; J3490; J7030; J7040; J7120; Q9967